=== PATIENT | female | born 1960 | race Caucasian/White ===

== ENCOUNTER → 2020-03-20 | Outpatient (REF) | LOC: ZLAB.WCH 20:05 | DX: Z01.89 Encounter for other specified special examinations (principal) ==

== ENCOUNTER 2020-03-27 14:31 | Inpatient (IN) | payer OTHER ==
[~2020-03-27] VITALS: Ht 157.5 cm; Wt 99.5 kg
[2020-03-27 17:24] VITALS: BP 142/64; PULSE 103; TEMP 98.7
[2020-03-27] MEDS ORDERED: TYLENOL 500MG500 MG PO (17:35)
[2020-03-27] MEDS ORDERED: NORVASC 10MG10 MG PO (17:35)
[2020-03-27] MEDS ORDERED: CATAPRES-TTS 10.1 M1 TD (17:36)
[2020-03-27] MEDS ORDERED: CATAPRES 0.1MG0.1 MG PO (17:40)
[2020-03-27] MEDS ORDERED: CARDURA 1MG1 MG PO (17:41)
--- NOTE | 2020-03-27 19:26 | NUR ---
Patient arrived to [facility] and her initial admission was completed by JONAH/Lisa. This nurse worked on admission papers and gave report to [facility] nurse.
[2020-03-28 05:20] VITALS: BP 121/63; PULSE 85; TEMP 98.3
--- NOTE | 2020-03-28 13:29 | NUR ---
Patient is very anxious this shift. She reports that she feels as if her vision has worsened over night. This nurse asked if she could see her hand, patient responded that it comes and goes. She couldn't explain what was actually happening. When patient was asked if she could see the nurses face she reported that she could only see the bottom half of my face. Assessment was completed on patient with VSS at this time. DANO Cannon was contacted regarding patient and her concerns. Kassandra will be seeing patient later today to evaluate her. Patient is currently working with PT at this time. Will continue to monitor.
[2020-03-28 13:32] VITALS: BP 129/69; PULSE 92; TEMP 98.6
--- NOTE | 2020-03-28 14:38 | NUR ---
Initial visit; Patient responded to Crisis Counselor well as she spoke of her positive thoughts on her recovery. Viktoriya stated that she has a large family for support and help. She states she will get better, it will just take time and if she doesn't she will deal with that too. She is Moravian and receptive to prayer. She states she is always fine with visits from Crisis Counselor.
--- NOTE | 2020-03-28 16:27 | NUR ---
The patient's RN notified SHLOMO that she has the patient's sister, Karmen Moore (ph#[phone]), on the phone and that Karmen would like to speak to SHLOMO. The patient's RN transferred this SW the call. Karmen reports that she would like to get a DPOA-HC done for the patient while here. Karmen states that the patient has a step-brother that is mean to her and Karmen is concerned that the patient would designate him. SHLOMO informed Karmen how this SW will address a DPOA-HC with the patient. Karmen reports that she would also like to get a General DPOA-HC. SHLOMO updated Karmen on the IPR Team Conference Note and the team's recommendation to re-eval the patient next week. Karmen was in agreement to the plan. SHLOMO then met with the patient to complete intake, as the patient is new to [facility]. The patient lives in [place] with her nephew, Joe Hall (ph#[phone]). She reports independence with ADLs prior to hospitalization and does not have any DME. The patient's PCP is Dr. Radha Dasilva and she receives her medications at [facility]. She reports no difficulties obtaining her meds. The patient is self pay. [facility] Director notified SHLOMO that a Medicaid application was completed with the patient at [facility]. SHLOMO notified our financial counselor. Financial Counseling needs Medicaid's Release of Information and the FAA forms signed. SHLOMO presented and explained the forms to the patient. The patient verbalized understanding and signed the forms. SHLOMO emailed them back to financial counseling. The patient confirms that she does not have a DPOA-HC. SHLOMO discussed completing a DPOA-HC. The patient was not interested in completing a DPOA-HC at this time. She states that she is not and does not have any children. She states that she has three siblings: Karmen Moore, Jeovany Mendieta, and Anita Tapia and that they can all make her medical decisions if she was unable to. SHLOMO then presented and reviewed the IPR Team Conference Note and informed her of the team's recommendation to re-eval her next Thursday. The patient was agreeable to the plan. SHLOMO to continue to follow.
[2020-03-28 17:12] VITALS: BP 126/76; PULSE 90; TEMP 99
--- NOTE | 2020-03-28 20:04 | NUR ---
See new order for CT scan due to patient reporting vision loss. Radiologist called to report that patient had a new right infarction and that it needed to be communicated to the provider right away. This nurse then called and spoke with Dr. Garcia of which ordered the CT scan and he came and assessed patient. See new order for 81 mg Asprin Daily. Patient was given first dose this evening per request of Dr. Garcia. See also orders for an Echo and carotid doppler per Dr. Garcia. Patient was updated on her condition by Dr. Garcia and this nurse sat down and spoke with patient following that visit. Patient requested to have a conference call with all her family this evening and her sister and nephew were able to connect with her for about 15 minutes this evening. Patient currently resting in bed, call light in reach and bed alarm set. Reported off to night nurse.
--- NOTE | 2020-03-28 20:18 | NUR ---
RECEIVED CHANGE OF SHIFT REPORT FROM DAY SHIFT NURSE.
[2020-03-29 05:23] VITALS: BP 132/63; PULSE 78; TEMP 98.4
--- NOTE | 2020-03-29 07:03 | NUR ---
PT SLEEPING IN BED AT BEDSIDE SHIFT REPORT. BED IN LOW, CALL LIGTH WITHIN REACH, ALARM ON.
--- NOTE | 2020-03-29 07:27 | NUR ---
CHANGE OF SHIFT REPORT GIVEN TO DAY SHIFT NURSEMARY. PATIENT RESTING DURING THE NIGHT WITH NO NEEDS REPORTED. BED ALARM ON WHEN IN BED DURING THE NIGHT.
[2020-03-29 08:47] LABS: BASO % 0.4 % (0.0-2.0); EOS # 0.2 (0.0-0.7); EOS % 1.8 % (0-4.0); GRAN # 4.8 (1.4-6.5); GRAN % 58.5 % (42.2-75.2); HEMATOCRIT 45.1 % (37.0-47.0); LYMPH # 2.3 (1.2-3.4); LYMPH % 27.5 % (20.0-51.0); MEAN CELL VOLUME 88 fl (80.0-100.0); MEAN CORPUSCULAR HEMOGLOBIN 29 pg (27.0-31.0); MEAN CORPUSCULAR HGB CONC 33 g/dl (33.0-37.0); MEAN PLATELET VOLUME 10.7 fl (7.4-10.4); MONO # 0.9 (0.1-0.6); MONO % 11.3 % (1.7-9.3); PLATELET COUNT 355 K/mm3 (130-400); RED BLOOD COUNT 5.12 M/mm3 (4.10-5.30); REDCELL DISTRIBUTION WIDTH-CV 13.2 % (11.5-14.5)
[2020-03-29 08:58] LABS: CALCIUM 9.4 mg/dL (8.4-10.2); CHOLESTEROL RISK RATIO 4.7; CREATININE, serum 0.66 (0.52-1.25); POTASSIUM 3.4 mmol/L (3.4-5.0)
--- NOTE | 2020-03-29 10:15 | NUR ---
Follow-up; Patient thanked for encouraging her as she did her exercise this morning.
[2020-03-29 16:57] VITALS: BP 109/58; PULSE 90; TEMP 98.3
--- NOTE | 2020-03-29 19:38 | NUR ---
PT DENIED PAIN, WAS REMINDED OF SECOND DG OF STROKE BY THREE SEPERATE PEOPLE DOES NOT REMEMBER. PT UNABLE TO ANSWER PHONE UNSURE IF VISION OR COGNITION ISSUE. PT UNABLE TO REMEMBER PW TO PHONE. PT TRANSFERRED WITH THIS NURSE WITH NO NOTICEABLE VISION ISSUES FIRST THING THIS AM.
--- NOTE | 2020-03-29 21:00 | NUR ---
PT RESTING IN BED. VERY ANXIOUS AND ESILY AGITATED. PT VERY FORGETFUL. DOES KNOW HER BIRTHDAY BUT UNABLE TO TELL WHERE SHE WAS. LEFT ARM AND SHOULDER WITH LIMITED ROM AND HAVING DIFFICULTY LIFTING. TACKER ELASTIC BAND WEAK BILAT BUT MORE SO ON LT. HAVING VISUAL DIFFICULTIES BUT UNABLE TO ANSWER QUESTIONS W/O GETTING VERY FRUSTRATED. PT DENIES NEED FOR TYLENOL. BED ALARM SET. CALL LIGHT IN REACH.
[2020-03-30 03:44] VITALS: BP 117/70; PULSE 81; TEMP 98
--- NOTE | 2020-03-30 07:09 | NUR ---
PT SLEPT THROUGH THE NIGHT. NO DISTRESS. REFUSED TO CHANGE CLOTHING LAST NIGHT. PT TURNS SELF IN BED FOR COMFORT. PT NEEDS TO DRINK MORE AND DECREASE IN UO NOTED THIS SHIFT.
--- NOTE | 2020-03-30 13:54 | NUR ---
Admission QIM scores were reviewed by the team. Code of 3 chosen for oral hygiene was determined by team discussion to be the most usual performance before interventions for this patient during the assessment period. Code of 4 chosen for sit to lying was determined by team discussion to be the most usual performance for this patient during the assessment period. Code of 3 chosen for walk 50 feet w/ 2 turns was determined by team discussion to be the most usual performance for this patient during the assessment period.--Lizette Anna, PD
[2020-03-30 16:28] VITALS: BP 141/75; PULSE 82; TEMP 98.5
--- NOTE | 2020-03-30 18:18 | NUR ---
PT DENIES PAIN TODAY, DENIES NEED TO VOID AND WILL NOT GO UNLESS PROMPTED. WHEN PROMTED PT VOIDS LARGE AMOUNTS, URINE THIS AM WAS SOMEWHAT CONCENTRATED AND ENCOURAGED FLUIDS THROUGHOUT THE DAY. LOOKS MORE PALE THIS EVENING. PT EASILY OVERWHELMED AND AGITATED. HELPED PT TO TAKE PASSWORD OFF OF PHONE IN HOPES IT IS MORE ACCESSIBLE. PT VERY ANXIOUS ABOUT HOME AFFAIRS THIS AFTERNOON. SPOKE AT LENGTH WITH PT'S FAMILY TODAY TO REASSURE PT ABOUT HOME AFFAIRS.
--- NOTE | 2020-03-30 20:30 | NUR ---
PT SITTING ON SIDE OF BED. A&O X4. MORE CONVERSIVE TONIGHT. EXPRESSIVE APHASIA NOTED BUT MORE PATIENT TO TO SLOW DOWN AND TRY TO ANSWER QUESTIONS. PT RELATES STILL HAVING VISUAL DIFFICULTIES. LT EYE VERY BLURRY W/ PUPIL FIXED AT 2MM. UNABLE TO DETERMINE NUMBER OF FINGERS HOLDING UP. RT PUPIL 3MM AND REACTS TO LIGHT. RT EYE VISION IS "SHAKEY" MOVES AROUND. ABLE TO DETERMINE 2 FINGERS HELD UP WITH LT EYE COVERED. RT SHOULDER STIFF W/ LIMITED ROM. VOTAREN APPLIED TO RT SHOULDER AND UPPER ARM. GAVE TYLENOL WELL. PT ABLE TO MOVE SELF AROUND IN BED PER SELF. HS CARES COMPLETED. CALL LIGHT IN REACH. BED ALARM SET.
[2020-03-31 05:45] VITALS: BP 133/73; PULSE 76; TEMP 97.3
--- NOTE | 2020-03-31 09:47 | NUR ---
Patient resting in bed, call light in reach and bed alarm set.
[2020-03-31 16:31] VITALS: BP 133/76; PULSE 83; TEMP 98.4
--- NOTE | 2020-03-31 18:06 | NUR ---
This nurse spoke with sister of patient, as she was requesting that staff work with patient phone so that patient is able to use the voice activated SABINO on her phone. This nurse worked with Donna and between the two of us were able to set patient's phone up so that she could call friends and family through voice activation of SABINO as well as ask Sabino questions and have Sabino answer her.
--- NOTE | 2020-03-31 20:55 | NUR ---
RESTING IN BED. HAVING RT SHOULDER PAIN. GAVE TYLENOL AND VOLTAREN. PT SEEMS IN GOOD SPIRITS TONIGHT. CONSERVATION BETTER. SOME DIFFICULTY FINDING WORDS. STILL HAVING VISUAL ISSUES.
[2020-04-01 05:44] VITALS: BP 145/79; PULSE 73; TEMP 97.6
--- NOTE | 2020-04-01 09:29 | NUR ---
Patient is getting ready for the day. She was independent with putting on clothing was set up with getting dressed up and lower. Patient was given voltoran for her right shoulder pain, refused any Tylenol. Currently resting in bed, call light in reach and bed alarm set. Will continue to monitor.
[2020-04-01 15:04] VITALS: BP 131/84; BP 158/92; PULSE 85; TEMP 98.1
--- NOTE | 2020-04-01 15:24 | NUR ---
Patient was taken for a walk to get a snack and some exercise this afternoon. Patient very talkative. Did some stretching exercises. Patient denies pain at this time. Will continue to monitor.
--- NOTE | 2020-04-01 20:00 | NUR ---
PT RESTING IN BED. SLEEPY. ORIENTED. USING CELL APPROPRIATELY. PT DENIES PAIN OF RT SHOULDER TONIGHT. STILL HAS LIMITED ROM OF LT SHOULDER. NO OTHER COMPLAINTS. STILL HAVING VISUAL ISSUES BUT HANDLING THIS WITH IMPROVED EMOTIONAL STATUS. CALL LIGHT IN REACH. BED ALARM SET.
[2020-04-02 05:32] VITALS: BP 114/56; PULSE 77; TEMP 98
--- NOTE | 2020-04-02 07:10 | NUR ---
PT SITTING ON EDGE OF BED EATING BREAKFAST AT BEDSIDE SHIFT REPORT.
--- NOTE | 2020-04-02 10:05 | NUR ---
Follow-up visit; Patient thanked Scalloper for looking in on her again today, Viktoriya seems to be in good spirits and looking forward to getting better and going home.
--- NOTE | 2020-04-02 15:05 | NUR ---
SHLOMO met with the patient to follow up after the weekend. The patient states that she is doing fine and that therapy has been okay. SHLOMO discussed getting a patient/family conference call set up for this Thursday at 1400. The patient was agreeable to this. SHLOMO also discussed what a DPOA-HC is and the importance of having one again. The patient states that she needs to think about this. SHLOMO attempted to contact the patient's sister, Karmen. SHLOMO left her a voicemail.
[2020-04-02 16:11] VITALS: BP 152/80; PULSE 92; TEMP 98.1
--- NOTE | 2020-04-02 17:19 | NUR ---
PT SEEMS IN MUCH HIGHER SPIRITS TODAY, NONE OF THE CRYING, FRUSTRATION, ANXIETY NOTED THAT WAS SEEN LAST THURSDAY. PT CONTINUES TO NEED CUEING TO DRINK FLUIDS AND NEEDS TO BE TOLD TO USE THE BATHROOM BECAUSE PT IS NOT AWARE WHEN BLADDER IS FULL.
--- NOTE | 2020-04-02 19:04 | NUR ---
RECEIVED CHANGE OF SHIFT REPORT FROM DAY SHIFT NURSE.
[2020-04-02 21:00] VITALS: BP 119/60
[2020-04-03 03:44] VITALS: BP 106/69; PULSE 70; TEMP 98.2
--- NOTE | 2020-04-03 06:54 | NUR ---
CHANGE OF SHIFT REPORT GIVEN TO DAY SHIFT NURSEMARY.
--- NOTE | 2020-04-03 06:59 | NUR ---
PT SLEEPING IN BED AT BEDSIDE SHIFT REPORT. BED IN LOW, CALL LIGHT WITHIN REACH, ALARM ON.
[2020-04-03 07:37] VITALS: BP 141/72; PULSE 76
--- NOTE | 2020-04-03 15:34 | NUR ---
Senior Landscape Architect contacted Joan to request meeting time change to 1330 tomorrow. Joan is agreeable to this and states she is off work all day. Joan will text the rest of the family to let them know. SW updated TRENTON Bauer Director.
[2020-04-03 16:13] VITALS: BP 148/76; PULSE 91; TEMP 98.7
--- NOTE | 2020-04-03 17:30 | NUR ---
PT DENIED PAIN OTHER THEN INTERMITTENT PAIN IN RIGHT SHOULDER WITH MOVEMENT. PT MADE INDEPENDENT IN ROOM TODAY. IS IN HIGH SPIRITS ABOUT THIS CHANGE. PT TOLERATING WELL.
--- NOTE | 2020-04-03 19:42 | NUR ---
RECEIVED CHANGE OF SHIFT REPORT FROM DAY SHIFT NURSE. PATIENT DENIES ANY NEEDS. PATIENT UP IN ROOM INDEPENDENTLY WITH NO AMB ASSIST DEVICES REQUIRED.
[2020-04-03 21:17] VITALS: BP 131/62
[2020-04-04 05:00] VITALS: BP 127/68; PULSE 65; TEMP 97.8
--- NOTE | 2020-04-04 09:00 | NUR ---
Patient ate breakfast eating 100%. Currently working with OT at this time. Denies pain. Magdalena Perez RN
--- NOTE | 2020-04-04 10:00 | NUR ---
Resting in bed following his first therapy session.
--- NOTE | 2020-04-04 11:00 | NUR ---
Did patient assessment. She denied questions. Reported that therapy went well this morning.
--- NOTE | 2020-04-04 16:16 | NUR ---
SW attended the patient/family conference call. The patient's sister (Karmen), nephew (Joe), and brother (Jeovany) were on the call. ALso present was IPR Director, PT, OT, and ST. IPR Director started by explaining the purpose of the meeting. PT/OT/ST then discussed the patient's progress so far. IPR Director informed the patient and her family how a tentative d/c date has been set for this Thursday, 04/06, with outpatient PT/OT/ST. The patient and her family were agreeable to the plan. Her sister is interested in getting meals on wheels set up for the patient from [facility], if available. SW to check into this. The team answered all questions. SHLOMO then met with the patient to present and review the IPR Team Conference Note. SHLOMO discussed how the [facility] can take her FAA and provide the therapy for her. The patient was agreeable to getting outpatient therapy set up there.
[2020-04-04 17:10] VITALS: BP 124/60; PULSE 77; TEMP 98.1
--- NOTE | 2020-04-04 20:00 | NUR ---
PT IN GOOD SPIRITS. MOD I IN ROOM. STILL HAVING VISUAL DEFECTS BUT DIZZINESS NOTED. PT STILL HAVING RT SHOULDER DISCOMFORT- SEE MAR FOR ANY PRNS GIVEN. CALL LIGHT IN REACH.
[2020-04-05 05:55] VITALS: BP 117/74; PULSE 59; TEMP 98.2
[2020-04-05] MEDS ORDERED: VOLTAREN GEL 1%1 TU TP (12:36)
[2020-04-05] MEDS ORDERED: ASPIRIN 81M81 MG/TA2 PO (12:36)
[2020-04-05] MEDS ORDERED: CATAPRES-TTS 10.1 M1 TD (12:37)
[2020-04-05] MEDS ORDERED: LIPITOR 80MG80 MG PO (12:37)
[2020-04-05] MEDS ORDERED: NORVASC 10MG10 MG PO (12:37)
[2020-04-05] MEDS ORDERED: TYLENOL 325MG325 MG PO (12:37)
[2020-04-05] MEDS ORDERED: CARDURA 1MG1 MG PO (12:37)
--- NOTE | 2020-04-05 15:53 | NUR ---
The patient's RN notified SHLOMO that the patient may not be able to afford her meds. SHLOMO contacted the patient's sister, Karmen, to review this. Karmen wanted to know what meds the patient was being prescribed. SHLOMO informed her. Karmen reports that they would prefer to get her meds at [facility]. Karmen reports that they would also prefer to do outpatient therapy at [facility], if they take our FAA. SHLOMO contacted [place] outpatient therapy. The car pincher reports that they do accept our FAA. SHLOMO secured the patient an outpatient OT appointment on 04/13 at 0800, PT on 04/13 at 0900, and ST on 04/13 at 1000. SHLOMO provided the appointment dates to the patient's RN. SHLOMO updated Karmen. Karmen reports that she already checked in with [facility] and priced the patient's meds. She states that she will be able to assist the patient and afford her meds.
[2020-04-05 16:54] VITALS: BP 121/74; PULSE 82; TEMP 97.7
[2020-04-06 05:17] VITALS: BP 131/69; PULSE 70; TEMP 98.4
--- NOTE | 2020-04-06 06:59 | NUR ---
PT RESTING ON SIDE OF BED FOR BEDSIDE SHIFT REPORT. IS IND IN ROOM, DISCHARGING HOME TODAY.
--- NOTE | 2020-04-06 09:21 | NUR ---
SHLOMO attempted to contact Chrissy with [employer]. SHLOMO left her a voicemail. SHLOMO attempted to contact [facility] about Meals on Wheels yesterday. SHLOMO left them a voicemail. SHLOMO updated Karmen. Karmen reports that they have to decided to take the patient to [place] after she discharges and have her picked edge sewing machine operator ready-to-go or frozen meals. The patient is to discharge back home with her nephew today, 04/06, with outpatient PT/OT/ST at [facility]. SHLOMO faxed the patient's d/c orders and FAA application to [facility]. No additional needs at this time.
--- NOTE | 2020-04-06 10:27 | NUR ---
Follow-up visit; Patient preparing to be discharged. Viktoriya is optimistic about all she needs to do to completely recover. She thanked Therapeutic Recreation Leader for visit and keeping her in Therapeutic Recreation Leader's prayers.
--- NOTE | 2020-04-06 12:18 | NUR ---
PT HEALTH SUMMARY, DISCHARGE SUMMARY, AND HOME MEDS PRINTED AND REVIEWED WITH PT AND SISTER RIANA. STRESSED IMPORTANCE OF FU APPTS. REVIEWED MEDICATIONS, CALLED ALL PRESCRIPTIONS TO THE [facility] OF CHOICE. BELONGINGS GATHERED BY PT INCLUDING PHONE AND IPAD. PT AMBULATED WITH NURSE AND SEATBELTED FOR RIDE HOME. PT AND SISTER DENIED QUESTIONS.
== END 2020-04-06 11:50 | disposition home or self-care (01) | DRG 57 ==
PROVIDERS: Nurse Practitioner Primary Care; ADMIT Internal Medicine
DX: I69.151 Hemiplegia and hemiparesis following nontraumatic intracerebral hemorrhage affecting right dominant side (principal); I69.220 Aphasia following other nontraumatic intracranial hemorrhage; I69.312 Visuospatial deficit and spatial neglect following cerebral infarction; F43.22 Adjustment disorder with anxiety; I10 Essential (primary) hypertension; R26.89 Other abnormalities of gait and mobility; E78.5 Hyperlipidemia, unspecified; R52 Pain, unspecified; Z79.1 Long term (current) use of non-steroidal anti-inflammatories (NSAID); Z88.0 Allergy status to penicillin; Z88.2 Allergy status to sulfonamides; Z88.5 Allergy status to narcotic agent
CPT/HCPCS: 99222-AI; 99232-AI; 99233-AI; 99239

== ENCOUNTER → 2020-10-18 | Outpatient (CLI) | payer OTHER ==
[~2020-10-18] MED LIST: ASPIRIN 81M81 MG/TA2 PO; CARDURA 1MG1 MG PO; CATAPRES 0.1MG0.1 MG PO; CATAPRES-TTS 10.1 M1 TD; LIPITOR 80MG80 MG PO; NORVASC 10MG10 MG PO; TYLENOL 325MG325 MG PO; TYLENOL 500MG500 MG PO; VOLTAREN GEL 1%1 TU TP
== END ==
LOC: COL.LAB 08:56
DX: Z02.71 Encounter for disability determination (principal); M54.5 Low back pain; Z98.1 Arthrodesis status